=== PATIENT | male | born 1955 | race Caucasian/White ===

== ENCOUNTER 2016-05-06 12:08 | Emergency (ER) | payer OTHER ==
[~2016-05-06] VITALS: Ht 170.2 cm; Wt 127.0 kg
--- NOTE | ~2016-05-06 | EKG ---
[address] [address] ELECTROCARDIOGRAM REPORT Name: RUPAL WAITE Room #: DEP [facility]#: [id number] Admission: 05/06/16 Attend Phys: Discharge: 05/06/16 Date of : 57 Report #: [id number] THIS REPORT FOR: //name// [facility] ED Test Date: 2016-05-06 Test Time: 12:13:16 Pat Name: RUPAL WAITE Department: Room: Gender: M Processing Specialist: : [id number] Requested By: Marium Llanos Order Number: [id number] MD: Mike Morales Measurements Intervals [place] Rate: 82 P: 68 NE: 143 QRS: 56 QRSD: 99 T: -36 QT: 377 QTc: 441 Interpretive Statements Sinus rhythm Probable left atrial enlargement Inferior infarct, age indeterminate No previous ECG available for comparison Electronically Signed On 05-06-2016 17:07:17 [employer] by Mike Morales [email or web address] <ELECTRONICALLY SIGNED> By: Mike Morales MD 05/06/16 1707 1213 1213 MD CORIN Romero
[~2016-05-06 12:08] MED LIST: ALLERGY RELIEF10 M3 PO; ALPRAZOLAM 0.0.25 M1 PO; AMBIEN 10 MG TA10 MG PO; AMBIEN 5 MG TABL5 M1 PO; ASPIRIN 81 MG T81 MG NG; ASPIRIN EC81 M1 PO; CELEXA 20 MG TA20 M1 PO; CELEXA40 MG PO; CYCLOBENZAPRINE5 MG PO; DIAZEPAM 5 MG5 M1 OR; DIAZEPAM 5 MG5 M1 PO; EC-NAPROSYN500 MG PO; FUROSEMIDE 20 M20 MG PO; GLIPIZIDE ER5 MG PO; GLUCOTROL XL5 MG PO; LISINOPRIL20 MG PO; LISINOPRIL40 MG PO; NAPROSYN500 MG PO; SIMVASTATIN40 MG PO; TOPROL XL 50 MG50 M1 PO; TOPROL XL100 MG PO; TRAMADOL 50 MG50 MG PO; ULTRAM 50MG TAB50 MG PO; VITAMIN D-32000 UNIT PO; XANAX 0.25 MG0.25 MG PO; ZOCOR40 MG PO
[2016-05-06 13:00] LABS: BASOPHILS 0.9 % (0.0-2.0); EOSINOPHILS 2.8 % (0.0-3.0); HEMATOCRIT 42.3 % (42.0-52.0); HEMOGLOBIN 14.8 gm/dL (14.0-18.0); LYMPHOCYTES 35.8 % (24.0-44.0); MCH 29.1 pg (26.0-34.0); MCHC 34.9 % (28.0-37.0); MCV 83.3 fL (80.0-100.0); MONOCYTES 8.9 % (1.0-8.0); PLATELET COUNT 210 thou/uL (150-400); POLYS 51.6 % (36.0-66.0); RBC 5.08 mil/uL (4.50-6.00); RDW 13.3 % (10.5-14.5); WBC 9.7 thou/uL (4.0-11.0)
[2016-05-06 13:01] LABS: MANUAL DIFF NO
[2016-05-06 13:05] LABS: CALCIUM 9.5 mg/dL (8.5-10.1); POTASSIUM 4.2 mmol/L (3.5-5.1)
[2016-05-06] MEDS ORDERED: CYMBALTA60 MG PO (14:46)
[2016-05-06] MEDS ORDERED: UNICOMPLEX M TA1 TA1 PO (14:46)
[2016-05-06] MEDS ORDERED: WELLBUTRIN XL150 MG PO (14:46)
[2016-05-06] MEDS ORDERED: GRALISE300 MG PO (14:46)
[2016-05-06] MEDS ORDERED: JANUMET 50-1,01 EACH PO (14:46)
[2016-05-06] MEDS ORDERED: ACCUNEB SO1.25 MG/1 INH (14:47)
[2016-05-06] MEDS ORDERED: FLONASE 0.05%50 MCG NASAL (14:47)
[2016-05-06 15:40] VITALS: BP 126/86
== END 2016-05-06 15:42 | disposition home or self-care (01) ==
LOC: ER 12:08
PROVIDERS: Emergency Medicine
DX: R07.89 Other chest pain (principal); I10 Essential (primary) hypertension; E11.9 Type 2 diabetes mellitus without complications; Z91.013 Allergy to seafood; Z88.8 Allergy status to other drugs, medicaments and biological substances; Z91.018 Allergy to other foods